=== PATIENT | female | born 1990 | race Caucasian/White ===

== ENCOUNTER 2017-11-17 11:42 | Emergency (ER) | payer OTHER ==
[~2017-11-17] VITALS: Ht 170.1 cm; Wt 81.6 kg
[~2017-11-17 11:42] MED LIST: CIPRO250 MG PO; DOXYCYCLINE HY100 M3 PO; FLAGYL500 MG PO; GYNE-LOTRIMIN21 GM VG; MACROBID100 M1 PO; PYRIDIUM200 M1 PO
[2017-11-17 13:04] LABS: BASO % 0.2 % (0.0-1.0); EOS # 0.1 10*3/uL (0.0-0.4); EOS % 0.7 % (1.0-4.0); HEMATOCRIT 42.6 % (37.0-47.0); HEMOGLOBIN 14.7 g/dl (12.0-16.0); LYMPH # 1.3 10*3/uL (1.3-4.4); LYMPH % 10.5 % (27.0-41.0); MEAN CELL VOLUME 87.7 fl (81.0-99.0); MEAN CORPUSCULAR HGB 30.2 pg (27.0-31.0); MEAN CORPUSCULAR HGB CONC 34.5 g/dl (33.0-37.0); MEAN PLATELET VOLUME 10.8 fl (9.6-12.3); MONO # 0.6 10*3/uL (0.1-1.0); MONO % 4.9 % (3.0-9.0); NEUT # 10.2 10*3/uL (2.3-7.9); NEUT % 83.4 % (47.0-73.0); PLATELET COUNT AUTOMATED 232 10*3/uL (130-400); RED BLOOD COUNT 4.86 10*6/uL (4.10-5.10); RED CELL DISTRI WIDTH 12.4 % (0-14.5); WHITE BLOOD COUNT 12.3 10*3/uL (4.8-10.8)
[2017-11-17 13:13] LABS: ALBUMIN 4.1 gm/dl (3.1-4.5); ALKALINE PHOSPHATASE 70 U/L (45-117); BUN 11 mg/dl (7-24); CHLORIDE 102 mmol/L (98-107); CREATININE 0.91 mg/dL (0.55-1.02); POTASSIUM 3.7 mmol/L (3.5-5.1); SGOT/AST 15 IU/L (3-35); SGPT/ALT 31 U/L (12-78); SODIUM 135 mmol/L (136-145); TOTAL PROTEIN 8.3 gm/dL (6.4-8.2)
[2017-11-17] MEDS ORDERED: PREDNISONE10 MG PO (14:35)
[2017-11-17] MEDS ORDERED: ROBITUSSIN DM 105 ML PO (14:35)
[2017-11-17] MEDS ORDERED: FLONASE ALLERG9.9 ML NAS (14:35)
[2017-11-17] MEDS ORDERED: CLARITIN10 MG PO (14:35)
== END 2017-11-17 14:39 | disposition home or self-care (01) ==
LOC: ED 11:42
PROVIDERS: Nurse Practitioner Family
DX: J20.9 Acute bronchitis, unspecified (principal); F17.200 Nicotine dependence, unspecified, uncomplicated; Z79.899 Other long term (current) drug therapy

== ENCOUNTER 2018-07-07 03:04 | Emergency (ER) | payer OTHER ==
[~2018-07-07] VITALS: Ht 172.7 cm; Wt 79.4 kg
[~2018-07-07 03:04] MED LIST changes: +CLARITIN10 MG PO; +FLONASE ALLERG9.9 ML NAS; +PREDNISONE10 MG PO; +ROBITUSSIN DM 105 ML PO
== END 2018-07-07 03:53 | disposition home or self-care (01) ==
LOC: ED 03:04
DX: M25.561 Pain in right knee (principal)

== ENCOUNTER 2020-07-16 02:31 | Emergency (ER) | payer OTHER ==
[~2020-07-16] VITALS: Ht 170.1 cm; Wt 83.0 kg
== END 2020-07-16 03:38 | disposition home or self-care (01) ==
LOC: ED 02:31
DX: J02.9 Acute pharyngitis, unspecified (principal); F17.200 Nicotine dependence, unspecified, uncomplicated; Z79.899 Other long term (current) drug therapy

== ENCOUNTER 2020-09-25 16:24 | Emergency (ER) | payer OTHER ==
[~2020-09-25] VITALS: Ht 170.2 cm; Wt 86.2 kg
[~2020-09-25 16:24] MED LIST changes: +AMOXICILLIN500 M2 PO; +MEDROXYPROGESTE10 M1 PO
== END 2020-09-25 22:55 | disposition left against medical advice (07) ==
LOC: ED 16:24
DX: M54.9 Dorsalgia, unspecified (principal); R07.81 Pleurodynia; Z79.899 Other long term (current) drug therapy; Z53.29 Procedure and treatment not carried out because of patient's decision for other reasons

== ENCOUNTER 2022-04-29 20:30 | Emergency (ER) | payer OTHER ==
[~2022-04-29] VITALS: Wt 90.7 kg
[2022-04-29] MEDS ORDERED: NAPROSYN500 MG PO (22:36)
== END 2022-04-29 22:46 | disposition home or self-care (01) ==
LOC: ED 20:30
DX: S83.92XA Sprain of unspecified site of left knee, initial encounter (principal); F17.200 Nicotine dependence, unspecified, uncomplicated; W18.30XA Fall on same level, unspecified, initial encounter; Y93.89 Activity, other specified; Y92.89 Other specified places as the place of occurrence of the external cause; Y99.9 Unspecified external cause status